=== PATIENT | female | born 1995 | race Caucasian/White ===

== ENCOUNTER 2017-08-25 13:57 | Emergency (ER) | payer OTHER ==
[~2017-08-25] VITALS: Ht 152.4 cm; Wt 217.0 kg
[2017-08-25 14:10] VITALS: BP 142/70; PULSE 99; RESP 16; O2SAT 98
--- NOTE | 2017-08-25 14:43 | PD ---
HPI Chief Complaint: Related Problem Time Seen by Provider: 14:34 Travel History International Travel<30 days: No Contact w/Intl Traveler<30days: No Traveled to known affect area: No History of Present Illness HPI 22-year-old female presents to emergency department for nausea and vomiting for 2 weeks. States that she has had a hard time keeping any food or liquids down. States she is , approx 6 weeks. She has a follow up with her [employer] September 08. She has had 1 episode of nonbloody diarrhea but denies any current diarrhea. Also denies fever/ chills or cough. Denies pain. She does not remember taking any new medication or foods. She does not know why she is nauseous. PFSH Past Medical History ?: LMP: 07/13/17 Social History Tobacco Use: No Allergies-Medications (Allergen,Severity, Reaction): Coded Allergies: No Known Allergies (Unverified , 08/25/17) Reported Meds & Prescriptions Reported Meds & Active Scripts Active Reglan (Metoclopramide HCl) 10 Mg Tab 10 Mg PO QID 7 Days Macrobid (Nitrofurantoin Monoh/Nitrofur Macro) 100 Mg Cap 100 Mg PO BID 7 Days Review of Systems Except as stated in HPI: all other systems reviewed are Neg Physical Exam Narrative GENERAL: Well-nourished, well-developed patient. Well-dressed make it done. SKIN: Focused skin assessment warm/dry. HEAD: Normocephalic. EYES: No scleral icterus. No injection or drainage. NECK: Supple, trachea midline. No JVD or lymphadenopathy. CARDIOVASCULAR: Regular rate and rhythm without murmurs, gallops, or rubs. RESPIRATORY: Breath sounds equal bilaterally. No accessory muscle use. GASTROINTESTINAL: Abdomen soft, non-tender, nondistended. MUSCULOSKELETAL: No cyanosis, or edema. BACK: Nontender without obvious deformity. No CVA tenderness. Data Data Last Documented VS Vital Signs Date Time Temp Pulse Resp B/P (MAP) Pulse Ox O2 Delivery O2 Flow Rate FiO2 08/25/17 16:37 08/25/17 14:10 99 16 98 Orders Orders Beta Hcg (Quant/Titer) (08/25/17 14:27) Complete Blood Count With Diff (08/25/17 14:27) Comprehensive Metabolic Panel (08/25/17 14:27) Urinalysis - C+S If Indicated (08/25/17 14:27) Ed Urine Pregnancytest Poc (08/25/17 14:27) Sodium Chlor 0.9% 1000 Ml Inj (Ns 1000 M (08/25/17 14:45) Metoclopramide Inj (Reglan Inj) (08/25/17 14:45) Urine Culture (08/25/17 15:15) Ed Discharge Order (08/25/17 16:35) Labs Laboratory Tests Test 08/25/17 15:15 White Blood Count 10.2 TH/MM3 Red Blood Count 4.19 MIL/MM3 Hemoglobin 11.6 GM/DL Hematocrit 35.8 % Mean Corpuscular Volume 85.4 FL Mean Corpuscular Hemoglobin 27.6 PG Mean Corpuscular Hemoglobin Concent 32.4 % Red Cell Distribution Width 13.8 % Platelet Count 269 TH/MM3 Mean Platelet Volume 9.8 FL Neutrophils (%) (Auto) 77.9 % Lymphocytes (%) (Auto) 15.4 % Monocytes (%) (Auto) 5.9 % Eosinophils (%) (Auto) 0.2 % Basophils (%) (Auto) 0.6 % Neutrophils # (Auto) 8.0 TH/MM3 Lymphocytes # (Auto) 1.6 TH/MM3 Monocytes # (Auto) 0.6 TH/MM3 Eosinophils # (Auto) 0.0 TH/MM3 Basophils # (Auto) 0.1 TH/MM3 CBC Comment DIFF FINAL Differential Comment Urine Color YELLOW Urine Turbidity HAZY Urine pH 6.0 Urine Specific [place] 1.029 Urine Protein 30 mg/dL Urine Glucose (UA) NEG mg/dL Urine Ketones 10 mg/dL Urine Occult Blood NEG Urine Nitrite NEG Urine Bilirubin NEG Urine Urobilinogen 2.0 MG/DL Urine Leukocyte Esterase LARGE Urine RBC 8 /hpf Urine WBC 12 /hpf Urine Squamous Epithelial Cells 17 /hpf Urine Amorphous Sediment RARE Urine Mucus MANY /lpf Microscopic Urinalysis Comment CULTURE INDICATED Blood Urea Nitrogen 8 MG/DL Creatinine 0.65 MG/DL Random Glucose 75 MG/DL Total Protein 7.8 GM/DL Albumin 3.6 GM/DL Calcium Level 8.8 MG/DL Alkaline Phosphatase 79 U/L Aspartate Amino Transf (AST/SGOT) 24 U/L Alanine Aminotransferase (ALT/SGPT) 43 U/L Total Bilirubin 0.3 MG/DL Sodium Level 138 MEQ/L Potassium Level 3.6 MEQ/L Chloride Level 105 MEQ/L Carbon Dioxide Level 22.0 MEQ/L Anion Gap 11 MEQ/L Estimat Glomerular Filtration Rate 116 ML/MIN Human Chorionic Gonadotropin, Quant 26893 MIU/ML MDM Medical Decision Making Medical Screen Exam Complete: Yes Emergency Medical Condition: Yes Differential Diagnosis Urinary tract infection versus nausea versus dehydration versus status Narrative Course 22-year-old female presents to emergency department for nausea and vomiting for 2 weeks. States that she has had a hard time keeping any food or liquids down. States she is , approx 6 weeks. She has a follow up with her [employer] September 08. She has had 1 episode of nonbloody diarrhea but denies any current diarrhea. Also denies fever/ chills or cough. Denies pain. She does not remember taking any new medication or foods. She does not know why she is nauseous. Vital signs stable Fluid challenge- patient feels better. Patient administered Reglan with decrease in nausea. Overall patient feels better. I offered patient another fluid challenge and she preferred to go home. States she will start drinking and eating properly. 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 Her nausea and vomiting may be secondary to a urinary tract infection as well. Return to the emergency department for worsening or persistent symptoms. Diagnosis Primary Impression: Urinary tract infection Qualified Codes: N30.00 - Acute cystitis without hematuria Additional Impression: Nausea & vomiting Qualified Codes: R11.2 - Nausea with vomiting, unspecified Referrals: Primary Care Physician Additional Instructions: Continue hydration with Gatorade and water. Take medication for nausea as prescribed and as needed. If your symptoms persist or worsen return to the emergency department Antibiotics as prescribed Scripts Metoclopramide (Reglan) 10 Mg Tab 10 MG PO QID for Nausea for 7 Days, #28 TAB 0 Refills Prov: Chelly Lewis MD 08/25/17 Nitrofurantoin Monohydrate Macrocrystals (Macrobid) 100 Mg Cap 100 MG PO BID for Infection for 7 Days, #14 CAP 0 Refills Prov: Chelly Lewis MD 08/25/17 Disposition: 01 DISCHARGE HOME Condition: Stable Mary Lindquist Aug 25, 2017 14:43
[2017-08-25] MEDS ORDERED: METOCLOPRAMIDE HCL 10 MG/2 ML VIAL IV PUSH ONE (14:45)
[2017-08-25] MEDS ORDERED: SODIUM CHLOR 0.9% 1000 ML INJ 1,000 ML IV ONE (14:45)
[2017-08-25 16:03] LABS: BASOPHIL # 0.1 TH/MM3 (0-0.2); BASOPHIL % 0.6 % (0.0-2.0); EOSINOPHIL % 0.2 % (0.0-4.0); HEMATOCRIT 35.8 % (35.0-46.0); HEMO FLAGS DIFF FINAL; LYMPH % 15.4 % (9.0-44.0); LYMPHOCYTE # 1.6 TH/MM3 (1.0-4.8); MEAN CELL VOLUME 85.4 FL (80.0-100.0); MEAN CORPUSCULAR HEMOGLOBIN 27.6 PG (27.0-34.0); MEAN CORPUSCULAR HGB CONC 32.4 % (32.0-36.0); MONO % 5.9 % (0.0-8.0); NEUT % 77.9 % (16.0-70.0); PLATELET COUNT 269 TH/MM3 (150-450); RED BLOOD COUNT 4.19 MIL/MM3 (4.00-5.30); RED CELL DISTRIBUTION WIDTH 13.8 % (11.6-17.2); WHITE BLOOD COUNT 10.2 TH/MM3 (4.0-11.0)
[2017-08-25 16:05] LABS: BLOOD, URINE NEG (NEG); COMMENT (UR) CULTURE INDICATED; CULTURE IF INDICATED CULTURE INDICATED; GLUCOSE,URINE NEG (NEG); KETONE, URINE 10 mg/dL (NEG); MUCUS URINE MANY /lpf (OCC); NITRITE,URINE NEG (NEG); SQUAMOUS EPITHELIAL CELL URINE 17 /hpf (0-5); URINE COLOR YELLOW (YELLW/STRAW)
[2017-08-25 16:27] LABS: ANION GAP 11 MEQ/L (5-15); AST (GOT) 24 U/L (16-38); BLOOD UREA NITROGEN 8 MG/DL (7-18); CHLORIDE 105 MEQ/L (98-107); GLOMERULAR FILTRATION RATE 116 ML/MIN (>89); POTASSIUM 3.6 MEQ/L (3.5-5.1); SODIUM (NA) 138 MEQ/L (136-145)
[2017-08-25] MEDS ORDERED: MACR100C2 PO (16:28)
[2017-08-25] MEDS ORDERED: REGL10TA5 PO (16:35)
[2017-08-25 16:45] LABS: ALKALINE PHOSPHATASE 79 U/L (45-117); ALT (GPT) 43 U/L (9-42); BETA HCG QUANT 82488 MIU/ML (0-5); TOTAL BILIRUBIN ADULT 0.3 MG/DL (0.2-1.0)
== END 2017-08-25 17:04 | disposition home or self-care (01) ==
LOC: NEPD 13:57
DX: O23.41 Unspecified infection of urinary tract in pregnancy, first trimester (principal); O21.9 Vomiting of pregnancy, unspecified; B95.61 Methicillin susceptible Staphylococcus aureus infection as the cause of diseases classified elsewhere; Z3A.01 Less than 8 weeks gestation of pregnancy
CPT/HCPCS: 80053; 81001; 84702; 84703; 85025; 86403; 87086; 87186; 96361; 96374; 99284; J2765; J7030